=== PATIENT | male | born 1990 | race Caucasian/White ===

== ENCOUNTER 2019-08-13 19:44 | Emergency (ER) | payer SELFPAY ==
--- NOTE | 2019-08-13 20:30 | EDM.PDOC ---
ED HPI GENERAL MEDICAL PROBLEM - General Chief Complaint: Laceration Stated Complaint: LIP LACERATION Time Seen by Provider: 08/13/19 20:16 Source of Information: Reports: Patient, RN Notes Reviewed History Limitations: Reports: No Limitations - History of Present Illness INITIAL COMMENTS - FREE TEXT/NARRATIVE: Patient is a 29-year-old male who presents to the ED for the evaluation of a right upper lip laceration. 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 This resulted in a roughly 1.5 cm laceration to the right upper lip near the lip crease where it meets the bottom lip. This is on the inner aspect of the lip on the oral side. There is another small lacer ation on his lower lip, on the intraoral aspect, also it on the lip itself. All of this is not actively bleeding. He denies any dental trauma, he is not having pain anywhere else, he denies any other sick-like symptoms, fever/chills, nausea/vomiting/diarrhea, cough/shortness of breath. - Related Data Allergies Allergy/AdvReac Type Severity Reaction Status Date / Time Penicillins Allergy Fever Verified 08/13/19 20:01 Home Meds: Home Meds . [No Known Home Meds] 07/02/15 [History] Past Medical History - Past Health History Medical/Surgical History: Denies Medical/Surgical History Social & Family History - Family History Family Medical History: Noncontributory - Tobacco Use Smoking Status *Q: Current Every Day Smoker Years of Tobacco use: 6 Packs/Tins Daily: 1 - Caffeine Use Caffeine Use: Reports: Coffee, Energy Drinks - Recreational Drug Use Recreational Drug Use: No ED ROS GENERAL - Review of Systems Review Of Systems: Comprehensive ROS is negative, except as noted in HPI. ED EXAM, SKIN/RASH Exam: See Below Exam Limited By: No Limitations General Appearance: Alert, WD/WN, No Apparent Distress Throat/Mouth: Normal Teeth, Normal Gums, Normal Voice, No Airway Compromise, Other (Oral trauma, see skin assessment for detail.) Head: Atraumatic, Normocephalic Neck: Normal Inspection, Supple, Non-Tender, Full Range of Motion Respiratory/Chest: No Respiratory Distress, Lungs Clear, Normal Breath Sounds, No Accessory Muscle Use, Chest Non-Tender Cardiovascular: Normal Peripheral Pulses, Regular Rate, Rhythm, No Murmur Neurological: Alert, Oriented, Normal Cognition, No Motor/Sensory Deficits Psychiatric: Normal Affect, Normal Mood Skin: Warm, Dry, Normal Color, No Rash, Wound/Incision (Laceration, roughly 1.5 cm to the intraoral aspect of the right lip fold, this is roughly half centimeter deep, and gaping. Other lacerations on lower lip are superficial and will heal by their own intention.) ED SKIN PROCEDURES - Laceration/Wound Repair Right Lateral Mouth Appearance: Subcutaneous, Linear, Clean Distal NVT: Neuro & Vascular Intact, No Tendon Injury Anesthetic Type: Local Local Anesthesia - Lidocaine (Xylocaine): 1% Plain Skin Prep: Chlorhexidine (Hibiciens), Saline Exploration/Debridement/Repair: Wound Explored, In a Bloodless Field, Explored to Base, No Foreign Material Found Closed with: Sutures Lac/Wound length In cm: 1.5 Suture Size: 4-0 # of Sutures: 3 (simple interrupted deep sutures) Repaired with: Vicryl Sterile Dressing Applied: Nurse Tetanus Status Addressed: Yes Complications: No Course - Vital Signs Last Recorded V/S: Last Vital Signs Temp 98.6 F 08/13/19 19:59 Pulse 79 08/13/19 19:59 Resp BP 138/93 H 08/13/19 19:59 Pulse Ox 100 08/13/19 19:59 - Orders/Labs/Meds Meds: Medications Discontinued Medications Generic Name Dose Route Start Last Admin Trade Name Kedar PRN Reason Stop Dose Admin Lidocaine HCl 10 ml 08/13/19 20:34 08/13/19 20:45 Xylocaine 1% INJECT 08/13/19 20:35 10 ml ONETIME ONE Administration Departure - Departure Time of Disposition: 20:32 Disposition: Home, Self-Care 01 Condition: Good Clinical Impression: Laceration of oral cavity Qualifiers: Encounter type: initial encounter Qualified Code(s): S01.512A - Laceration without foreign body of oral cavity, initial encounter - Discharge Information *PRESCRIPTION DRUG MONITORING PROGRAM REVIEWED*: No *COPY OF PRESCRIPTION DRUG MONITORING REPORT IN PATIENT [place]: No Instructions: Mouth Laceration, [id number] Referrals: PCP,None [Primary Care Provider] - Forms: ED Department Discharge Additional Instructions: You were evaluated in the ER today for your oral laceration. This was repaired with absorbable sutures. These should stay in a number of days, and then absorb on their own you should not need to have these removed. This should provide enough time to allow this wound to heal properly. As for the other lacerations on her lower lip, these will heal nicely by their own intention. Recommend that you have swish and spit with salt water for the next few days, as this will help try to irrigate the area and keep it as clean as possible. Please watch out for any signs of infection, redness, swelling, pain at the laceration site. Please do not hesitate to return to the ER if symptoms change or worsen. Sepsis Event Note (ED) - Evaluation Sepsis Screening Result: No Definite Risk - Focused Exam Vital Signs: Vital Signs Temp Pulse BP Pulse Ox 08/13/19 19:59 98.6 F 79 138/93 H 100
[2019-08-13] MEDS ORDERED: Lidocaine 1% 10 ML MDV INJECT ONE (20:34)
== END 2019-08-13 21:03 | disposition home or self-care (01) ==
LOC: JD.ED 19:44
DX: S01.511A Laceration without foreign body of lip, initial encounter (principal); F17.210 Nicotine dependence, cigarettes, uncomplicated; Z88.0 Allergy status to penicillin; W22.8XXA Striking against or struck by other objects, initial encounter
CPT/HCPCS: 12011; 99282; J2001